=== PATIENT | male | born 1960 | race Caucasian/White ===

== ENCOUNTER 2021-09-01 17:03 | Observation (INO) | payer BC, SELFPAY ==
[2021-09-01] VITALS (13 sets, daily range): BP systolic 115–229; BP diastolic 58–94; PULSE 68–89; RESP 14–18; TEMP 36.4; O2SAT 97–98; BMI 41.4
--- NOTE | 2021-09-01 17:31 | XRR_ITS ---
PROCEDURE INFORMATION: Exam: XR Chest Exam date and time: 09/01/2021 5:37 PM Age: 61 years old Clinical indication: Pain; Angina pectoris; Additional info: Chest pain TECHNIQUE: Imaging protocol: Radiologic exam of the chest. Views: 1 view. COMPARISON: No relevant prior studies available. FINDINGS: Lungs: Lungs are clear. Pleural spaces: There is no pleural effusion or pneumothorax. Heart/Mediastinum: There is mild enlargement of the cardiac silhouette. Bones/joints: Bones are unremarkable. XR/XR chest 1V portable [id number] IMPRESSION: No acute findings.
--- NOTE | 2021-09-01 17:31 | ECG_ITS ---
[facility] Test Date: 2021-09-01 Pat Name: Jules Pardo Department: Room: Gender: Male Dialysis Rn: : 1960 Requested By: Kath Lerner Order Number: [id number] Barros MD: Julia Veliz M.D. Measurements Intervals [place] Rate: 82 P: 61 [place]: 146 QRS: 45 QRSD: 108 T: 94 QT: 377 QTc: 442 Interpretive Statements SINUS RHYTHM WITH SINUS ARRHYTHMIA NONSPECIFIC ST & T-WAVE ABNORMALITY No previous ECG available for comparison Electronically Signed On 09-01-2021 22:13:07 CDT by Julia Veliz M.D. [id number]
--- NOTE | 2021-09-01 17:33 | W.ED.CHESTPA ---
Documented by User: JIM Alonso 09/01/21 22:11 HPI - Chest Pain General: Chief Complaint: Chest Pain Stated Complaint: Possible Heart Attack Time Seen by Provider: 09/01/21 17:33 History of Present Illness: 61-year-old male patient comes in today for complaints of chest discomfort starting under the right breast going to the back and then down his left arm. Patient reports he first had chest discomfort Monday evening and had taken a nitro with some relief of pain. Patient been was seen at the physician's office today with recurrence of chest discomfort. Patient was referred to the emergency room for further evaluation and treatment. Patient was given 1 dose of nitro at the physician's clinic and [place]. Patient takes atorvastatin, lisinopril, clonidine as needed, and furosemide. Patient reports a history of a stress heart attack, about 15 years ago. Patient's had no surgeries. Patient appears in no pain at this time. Patient appears nontoxic. Associated symptoms: Reports nausea; Deny dyspnea, fever(s) or vomiting Review of Systems General: Reports: 10 or more systems reviewed and unremarkable except in HPI and below Const: Denies: fever(s) Card: Reports: chest pain Resp: Denies: dyspnea GI: Reports: nausea; Denies: vomiting or diarrhea : Denies: difficulty urinating Skin/Breast: Denies: rash PFSH ED PFSH: Medical History (Updated 09/04/21 @ 00:00 by ) Brown recluse spider bite Left calf that required intervention Diabetes mellitus, type II History of heart attack Patient describes having a stress heart attack at the age of 31, did not require any intervention Hyperlipidemia Hypertension Sleep apnea Has been on CPAP in the past; does not currently have a functioning CPAP machine Surgical History (Updated 09/02/21 @ 08:31 by Louisa Bishop MD) History of incision and drainage Family History (Updated 09/02/21 @ 08:38 by Louisa Bishop MD) Other CAD (coronary artery disease) Diabetes Social History (Updated 09/02/21 @ 08:33 by Louisa Bishop MD) Smoking and tobacco status: never smoked Alcohol intake: never Physical Exam Const: COMMON NORMALS: alert HENMT: HEAD & SCALP: normal to inspection Neck/C-Spine: COMMON NORMALS: full ROM Chest: COMMONS NORMALS: normal inspection of the chest Resp: COMMON NORMALS: normal respiratory effort and clear to auscultation bilaterally AUSCULTATION: clear to auscultation bilaterally Cardio: COMMON NORMALS: regular rate and regular rhythm RATE: regular rate RHYTHM: regular rhythm GI: COMMON NORMALS: non-tender Extremity: COMMON NORMALS: normal to inspection NARRATIVE EXTREMITY EXAM: no significant edema Neuro: SENSORIUM/ORIENTATION: Yes alert Psych: COMMON NORMALS: mental status grossly normal and cooperative Skin: COMMON NORMALS: no rashes or lesions noted GENERAL SKIN EXAM: no rashes or lesions noted Course ED course: 1829, initial high-sensitivity troponin is 28, heart score is 5. We will await second troponin which is scheduled for 1954. 1929, reviewed patient with Dr. Weldon about patient's increased heart score and is suspicious story. We will await second troponin and then discuss further with patient about admission to hospital for further cardiac evaluation. 2047, Dr. Weldon talked with patient about admission due to increasing numbers on the troponins 2-hour. Patient is resting well at this time and is agreeable to admission. We will talk with Dr. Boo, hospitalist as she is available. Patient will need admission for repeat labs, cardiac monitoring, and isobutylene operator chief evaluation. 2205, reviewed patient with Dr. Bishop who agreed to observation status for patient. Vital Signs: Vital signs: Vital Signs Temperature 98.0 F 09/03/21 07:32 Pulse Rate 64 09/03/21 16:42 Respiratory Rate 17 09/03/21 16:42 Blood Pressure 164/59 09/03/21 16:42 Pulse Oximetry 98 09/03/21 16:42 MDM - Chest Pain Medical Decision Making 61-year-old male patient comes in today for complaints of intermittent chest pain. Patient had an episode of chest pain on Monday in which he took nitro with improvement of his pain. Patient came in today after having chest pain being seen at primary care was given 1 nitro and was referred to the ER for concerns of myocardial infarction. On exam patient is alert and oriented. In moderate pain. Respirations are even lungs were clear to auscultation. Patient's blood pressure was 230 systolic. EKG showed sinus rhythm. Differential diagnosis includes but not limited to malignant hypertension, myocardial infarction, stable angina. Patient was treated with nitroglycerin 1 inch of paste to the chest wall for chest pain, 20 mg of labetalol for his blood pressure, and 324 mg of chewable aspirin for chest pain. Initial troponin was slightly elevated at 28-second troponin showed an increase in his level. We recommended admission to the hospital for further evaluation and monitoring of labs and isobutylene operator chief referral. Lab Data : 09/03/21 04:10 09/03/21 05:30 Radiology Impressions Chest X-Ray 09/01/21 17:31 IMPRESSION: No acute findings. Laboratory Results WBC 8.3 10^3/uL (4.0-10.0) 09/01/21 17:55 RBC 5.68 10^6/uL (4.1-5.3) H 09/01/21 17:55 Hgb 16.2 g/dL (11.7-16.6) 09/01/21 17:55 Hct 46.4 % (42.0-52.0) 09/01/21 17:55 MCV 81.7 fl (80-94) 09/01/21 17:55 MCH 28.5 pg (28.0-34.0) 09/01/21 17:55 MCHC 34.9 g/dL (30.0-36.0) 09/01/21 17:55 RDW 12.0 % (12.1-15.1) L 09/01/21 17:55 Plt Count 301 10^3/cmm (130-400) 09/01/21 17:55 MPV 9.9 fL (7.4-10.4) 09/01/21 17:55 Neut % (Auto) 58.9 % 09/01/21 17:55 Lymph % (Auto) 30.1 % 09/01/21 17:55 [place] % (Auto) 6.6 % 09/01/21 17:55 Eos % (Auto) 3.5 % 09/01/21 17:55 Baso % (Auto) 0.5 % 09/01/21 17:55 Neut # (Auto) 4.88 10^3/uL (1.8-7.7) 09/01/21 17:55 Lymph # (Auto) 2.5 10^3/uL (0.8-4.8) 09/01/21 17:55 [place] # (Auto) 0.6 10^3/uL (0.2-0.9) 09/01/21 17:55 Eos # (Auto) 0.3 10^3/uL (0.0-0.8) 09/01/21 17:55 Baso # (Auto) 0.0 10^3/uL (0.0-0.1) 09/01/21 17:55 Nucleated RBC % (auto) 0 % 09/01/21 17:55 Nucleated RBCs # 0.0 /100WBC 09/01/21 17:55 Sodium 138 mmol/L (136-145) 09/01/21 17:55 Potassium 4.2 mmol/L (3.5-5.1) 09/01/21 17:55 Chloride 102 mmol/L (98-107) 09/01/21 17:55 Carbon Dioxide 23 mmol/L (22-29) 09/01/21 17:55 Anion Gap 17.2 (5-19) 09/01/21 17:55 BUN 23 mg/dL (8-23) 09/01/21 17:55 Creatinine 1.4 mg/dL (0.7-1.2) H 09/01/21 17:55 GFR Calculation 51.5 mL/min (90-130) L 09/01/21 17:55 Glucose 159 mg/dL (65-115) H 09/01/21 17:55 Calculated Osmolality 293 mOsm/kg (285-295) 09/01/21 17:55 Calcium 8.7 mg/dL (8.5-10.5) 09/01/21 17:55 Troponin T Baseline 28 ng/L (0-15) H 09/01/21 17:55 Troponin T 120 Minute 32.51 ng/L (0-15) H 09/01/21 19:50 Delta Troponin T 4.51 ABS# (0-10) 09/01/21 19:50 Discharge Plan Discharge Patient Disposition: Placed in Observation Admit Provider: Louisa Bishop Clinical Impression: Chest pain, Hypertension Discharge Diet: Cardiac Discharge Activity: Resume usual activity Sign Out Sign Out Data: Patient Sign Out occurred on 09/01/21 at 21:44. Patient's care was discussed, and care was transferred from to Óscar Weldon MD. Coding Level of Care Code ED Varnish Supervisor for Chg Fwd Exam Comprehensive Documented by User: Óscar Weldon MD 09/15/21 18:25 HPI - Chest Pain General: Chief Complaint: Chest Pain Stated Complaint: Possible Heart Attack Time Seen by Provider: 09/01/21 17:33 PFSH ED PFSH: Medical History (Updated 09/04/21 @ 00:00 by ) Brown recluse spider bite Left calf that required intervention Diabetes mellitus, type II History of heart attack Patient describes having a stress heart attack at the age of 31, did not require any intervention Hyperlipidemia Hypertension Sleep apnea Has been on CPAP in the past; does not currently have a functioning CPAP machine Surgical History (Updated 09/02/21 @ 08:31 by Louisa Bishop MD) History of incision and drainage Family History (Updated 09/02/21 @ 08:38 by Louisa Bishop MD) Other CAD (coronary artery disease) Diabetes Social History (Updated 09/02/21 @ 08:33 by Louisa Bishop MD) Smoking and tobacco status: never smoked Alcohol intake: never Course Vital Signs: Vital signs: Vital Signs Temperature 98.0 F 09/03/21 07:32 Pulse Rate 64 09/03/21 16:42 Respiratory Rate 17 09/03/21 16:42 Blood Pressure 164/59 09/03/21 16:42 Pulse Oximetry 98 09/03/21 16:42 MDM - Chest Pain Medical Decision Making 61-year-old male patient comes in today for complaints of intermittent chest pain. Patient had an episode of chest pain on Monday in which he took nitro with improvement of his pain. Patient came in today after having chest pain being seen at primary care was given 1 nitro and was referred to the ER for concerns of myocardial infarction. On exam patient is alert and oriented. In moderate pain. Respirations are even lungs were clear to auscultation. Patient's blood pressure was 230 systolic. EKG showed sinus rhythm. Differential diagnosis includes but not limited to malignant hypertension, myocardial infarction, stable angina. Patient was treated with nitroglycerin 1 inch of paste to the chest wall for chest pain, 20 mg of labetalol for his blood pressure, and 324 mg of chewable aspirin for chest pain. Initial troponin was slightly elevated at 28-second troponin showed an increase in his level. We recommended admission to the hospital for further evaluation and monitoring of labs and isobutylene operator chief referral. I discussed this case with JIM Pérez. I personally saw and evaluate the patient. I reviewed documentation, labs, imaging, and EKGs. Patient not low risk by heart score. Óscar Weldon MD Emergency Medicine Lab Data : 09/03/21 04:10 09/03/21 05:30 Radiology Impressions Chest X-Ray 09/01/21 17:31
[2021-09-01] MEDS: nitroglycerin 1 gm/inch oint Pkt 1 INCH TOPICAL ×2 (17:50→23:48)
[2021-09-01] MEDS: aspirin 81 mg Chew Tablet 324 MG PO (17:50)
[2021-09-01 17:59] LABS: Basophils % 0.5 %; Eosinophils # 0.3 10^3/uL (0.0-0.8); Eosinophils % 3.5 %; Hematocrit 46.4 % (42.0-52.0); Hemoglobin 16.2 g/dL (11.7-16.6); Lymphocytes # 2.5 10^3/uL (0.8-4.8); Lymphocytes % 30.1 %; Mean Corpuscular HGB Conc 34.9 g/dL (30.0-36.0); Mean Corpuscular Hemoglobin 28.5 pg (28.0-34.0); Mean Corpuscular Volume 81.7 fl (80-94); Mean Platelet Volume 9.9 fL (7.4-10.4); Monocytes # 0.6 10^3/uL (0.2-0.9); Monocytes % 6.6 %; Neutrophils # 4.88 10^3/uL (1.8-7.7); Neutrophils % 58.9 %; Nucleated Red Blood Cells % 0 %; Platelet Count 301 10^3/cmm (130-400); Red Blood Count 5.68 10^6/uL (4.1-5.3); White Blood Count 8.3 10^3/uL (4.0-10.0)
[2021-09-01 18:17] LABS: Blood Urea Nitrogen 23 mg/dL (8-23); Calcium 8.7 mg/dL (8.5-10.5); Carbon Dioxide 23 mmol/L (22-29); Chloride 102 mmol/L (98-107); Glomerular Filtration Rate 51.5 mL/min (90-130); Glucose 159 mg/dL (65-115); Osmolality Calculated 293 mOsm/kg (285-295); Sodium 138 mmol/L (136-145)
[2021-09-01 18:19] LABS: Troponin(5th) Baseline 28 ng/L (0-15)
[2021-09-01] MEDS: labetalol 5 mg/mL SDV 20mL 20 MG IVP (18:20)
[2021-09-01 18:27] LABS: Anion Gap 17.2 (5-19); Potassium 4.2 mmol/L (3.5-5.1)
--- NOTE | 2021-09-01 19:31 | ECG_ITS ---
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 Measurements Intervals [place] Rate: 89 P: 28 [place]: 176 QRS: 53 QRSD: 117 T: 114 QT: 385 QTc: 470 Interpretive Statements SINUS RHYTHM WITH MARKED SINUS ARRHYTHMIA MODERATE INTRAVENTRICULAR CONDUCTION DELAY [110+ ms QRS DURATION] MODERATE T-WAVE ABNORMALITY, CONSIDER LATERAL ISCHEMIA [-0.1+ mV T-WAVE IN I/aVL/V5/V6] Compared to ECG 09/01/2021 18:02:54 Intraventricular conduction delay now present Possible ischemia now present T-wave abnormality still present Electronically Signed On 09-03-2021 5:52:55 CDT by Tiffany Martinez M.D. [id number]
[2021-09-01 20:20] LABS: Troponin 5 2HR 32.51 ng/L (0-15); Troponin 5 2HR Delta 4.51 ABS# (0-10)
--- NOTE | 2021-09-01 23:10 | PM.HP ---
Providers/Chief Complaint Admitting Physician: Louisa Bishop MD Chief Complaint: Possible Heart Attack History of Present Illness Jules Pardo is a 61 year old male who presented to the emergency room with chief complaint of chest pain. He initially had chest pain on Monday. On that date he woke up not feeling well. Chest pain came on later in the day. It was initially substernal in nature. Associated with shortness of breath, nausea and vomiting. The pain seemed to radiate into his right shoulder and axillary area. He said it felt like I had a balloon under my arm . Later on the pain seemed to also radiate into his left upper extremity. He has different types of pain in different areas with some of it being sharp, primarily on the right side and more of a pressure sensation on the left side. He describes decreased sensation in all of his fingers and toes since Monday. He felt bad enough that he had difficulty walking. He stayed in bed on Monday. Today he saw his primary care provider. In the clinic he was noted to have significant hypertension with systolic pressures in the 200s. This was associated with chest pain so he was sent to the emergency room. On arrival here, blood pressure was 229/94. Chest pain was again located in the substernal area. Nausea and shortness of breath again associated. No radiation of the pain this time. He continues to complain of paresthesias in hands and feet. He was given some Nitropaste with resolution of his chest pain as well as improvement in his blood pressures. Twelve-lead EKG showed sinus rhythm with only nonspecific ST segment changes. No ST elevation. Patient has history of diabetes, hypertension and hyperlipidemia. He says that he had a heart attack at the age of 31 related to stress . He has had stress testing done previously but does not sound like he has had an arteriogram. No history of any stents or other intervention. Last stress test was probably 6 years ago at [place]. Initial troponin was 28. Second troponin was 32. Given risk factors for coronary artery disease combined with presentation, patient is being admitted for further evaluation and treatment. Review of Systems Const: Reports: fatigue and malaise; Denies: fever(s), chills or change in weight Eyes: Denies: change in vision ENMT: Denies: throat pain or nasal congestion Card: Reports: chest pain and dyspnea on exertion; Denies: palpitations, edema, lightheadedness or orthopnea Resp: Reports: dyspnea; Denies: productive cough or non-productive cough GI: Reports: nausea; Denies: abdominal pain, vomiting, diarrhea, constipation or hematochezia : Denies: difficulty urinating Musc: Reports: muscle weakness Skin/Breast: Denies: rash or pruritus Neuro: Reports: numbness in extremities (Fingertips and toe tips), weakness in extremities (General rather than focal) and difficulty walking; Denies: headache(s) Psych: Denies: anxiety or depression Doyle/Lymph: Denies: easy bruising or easy bleeding Medications/Allergies Home Medications Medication Instructions Recorded Confirmed Last Taken Type atorvastatin 10 mg tablet 10 mg PO DAILY 09/01/21 09/01/21 Unknown History clonidine HCl 0.1 mg tablet 0.1 mg PO DAILY PRN 09/01/21 09/01/21 Unknown History furosemide 20 mg tablet 20 mg PO DAILY 09/01/21 09/01/21 Unknown History lisinopril 20 mg tablet 10 mg PO DAILY 09/01/21 09/01/21 Unknown History insulin NPH isoph U-100 human 100 30 unit SUBCUT BID 09/02/21 09/02/21 09/01/21 History unit/mL subcutaneous suspension (Novolin N NPH U-100 Insulin isophane) insulin regular human 100 unit/mL See Rx Instructions .ROUTE .COMPLEX 09/02/21 09/02/21 Unknown History injection solution (Novolin R Regular U-100 Insulin) Allergies Allergy/AdvReac Type Severity Reaction Status Date / Time No Known Allergies Allergy Verified 09/02/21 08:27 PFSH Acute PFSH: Medical History (Updated 09/02/21 @ 09:03 by Louisa Bishop MD) Brown recluse spider bite Left calf that required intervention Diabetes mellitus, type II History of heart attack Patient describes having a stress heart attack at the age of 31, did not require any intervention Hyperlipidemia Hypertension Sleep apnea Has been on CPAP in the past; does not currently have a functioning CPAP machine Surgical History (Updated 09/02/21 @ 08:31 by Louisa Bishop MD) History of incision and drainage Family History (Updated 09/02/21 @ 08:38 by Louisa Bishop MD) Other CAD (coronary artery disease) Diabetes Social History (Updated 09/02/21 @ 08:33 by Louisa Bishop MD) Smoking and tobacco status: never smoked Alcohol intake: never Substance/Drug Use: never Vitals/I&O/Wt Last Vital Signs Temp 97.6 F 09/01/21 17:08 Pulse 71 09/01/21 22:40 Resp 16 09/01/21 22:40 BP 139/84 09/01/21 22:40 Pulse Ox 97 09/01/21 22:40 Weight last 48 hrs Weight 116.573 kg Physical Exam Narrative: Constitutional: Awake and alert HEENT: Normocephalic, atraumatic, pupils are reactive, conjunctive is slightly injected, nasopharynx is clear, oropharynx with moist mucous membranes Neck: Large but supple Respiratory: Clear to auscultation bilaterally, no rales rhonchi or wheezes Cardiovascular: Regular rate and rhythm, no murmurs gallops or rubs, no JVD Abdomen: Soft, obese, nontender, positive bowel sounds Extremities: Trace edema bilaterally, left calf with some nodularity in the region of the hyperpigmented area which she states corresponds to where he previously had a brown recluse bite with large wound Skin: Hyperpigmented areas both calves left more prominent than right with some stasis changes appreciated anteriorly Neuro: Speech clear, face symmetric, handgrip equal, decreased sensation to light touch at all digits distally, not in a dermatomal pattern Psych: Normal affect Data : 09/01/21 17:55 09/02/21 05:42 Other Labs: Radiology Impressions Chest X-Ray 09/01/21 17:31 IMPRESSION: No acute findings. Laboratory Results WBC 8.3 10^3/uL (4.0-10.0) 09/01/21 17:55 RBC 5.68 10^6/uL (4.1-5.3) H 09/01/21 17:55 Hgb 16.2 g/dL (11.7-16.6) 09/01/21 17:55 Hct 46.4 % (42.0-52.0) 09/01/21 17:55 MCV 81.7 fl (80-94) 09/01/21 17:55 MCH 28.5 pg (28.0-34.0) 09/01/21 17:55 MCHC 34.9 g/dL (30.0-36.0) 09/01/21 17:55 RDW 12.0 % (12.1-15.1) L 09/01/21 17:55 Plt Count 301 10^3/cmm (130-400) 09/01/21 17:55 MPV 9.9 fL (7.4-10.4) 09/01/21 17:55 Neut % (Auto) 58.9 % 09/01/21 17:55 Lymph % (Auto) 30.1 % 09/01/21 17:55 [place] % (Auto) 6.6 % 09/01/21 17:55 Eos % (Auto) 3.5 % 09/01/21 17:55 Baso % (Auto) 0.5 % 09/01/21 17:55 Neut # (Auto) 4.88 10^3/uL (1.8-7.7) 09/01/21 17:55 Lymph # (Auto) 2.5 10^3/uL (0.8-4.8) 09/01/21 17:55 [place] # (Auto) 0.6 10^3/uL (0.2-0.9) 09/01/21 17:55 Eos # (Auto) 0.3 10^3/uL (0.0-0.8) 09/01/21 17:55 Baso # (Auto) 0.0 10^3/uL (0.0-0.1) 09/01/21 17:55 Nucleated RBC % (auto) 0 % 09/01/21 17:55 Nucleated RBCs # 0.0 /100WBC 09/01/21 17:55 Sodium 138 mmol/L (136-145) 09/01/21 17:55 Potassium 4.2 mmol/L (3.5-5.1) 09/01/21 17:55 Chloride 102 mmol/L (98-107) 09/01/21 17:55 Carbon Dioxide 23 mmol/L (22-29) 09/01/21 17:55 Anion Gap 17.2 (5-19) 09/01/21 17:55 BUN 23 mg/dL (8-23) 09/01/21 17:55 Creatinine 1.4 mg/dL (0.7-1.2) H 09/01/21 17:55 GFR Calculation 51.5 mL/min (90-130) L 09/01/21 17:55 Glucose 159 mg/dL (65-115) H 09/01/21 17:55 Calculated Osmolality 293 mOsm/kg (285-295) 09/01/21 17:55 Calcium 8.7 mg/dL (8.5-10.5) 09/01/21 17:55 Troponin T Baseline 28 ng/L (0-15) H 09/01/21 17:55 Troponin T 120 Minute 32.51 ng/L (0-15) H 09/01/21 19:50 Delta Troponin T 4.51 ABS# (0-10) 09/01/21 19:50 A&P Assessment and plan (1) Chest pain: With typical and atypical features for angina. Hypertension, untreated sleep apnea, GI or musculoskeletal source of symptoms are also consideration. Improved with nitroglycerin. Status: Acute Qualifiers: Chest pain type: precordial pain Qualified Code(s): R07.2 - Precordial pain (2) Hypertensive urgency: Present on admission. Patient describes another event not too long ago that was similar during which he was prescribed clonidine to utilize as needed. Improved with Nitropaste. Chronically on Lasix and lisinopril. Status: Acute (3) Elevated serum creatinine: Suspect patient has chronic kidney disease stage IIIa but no prior laboratory studies for comparison. He does have chronic furosemide and lisinopril on his medication list also. Status: Acute (4) Diabetes mellitus, type II: On Novolin N and R Status: Chronic Qualifiers: Chronic kidney disease stage: stage 3 (moderate) Chronic kidney disease stage 3 subtype: stage 3a (GFR 45-59) Diabetes mellitus complication detail: with chronic kidney disease Diabetes mellitus complication status: with kidney complications Diabetes mellitus buttermaker continuous churn insulin use: with long-term use Qualified Code(s): E11.22 - Type 2 diabetes mellitus with diabetic chronic kidney disease; N18.31 - Chronic kidney disease, stage 3a; Z79.4 - assisted (current) use of insulin (5) Hyperlipidemia: Chronically on statin Status: Chronic (6) Sleep apnea: Not currently on CPAP treatment due to nonfunctioning machine Status: Chronic Qualifiers: Sleep apnea type: obstructive Qualified Code(s): G47.33 - Obstructive sleep apnea (adult) (pediatric) (7) Body mass index (BMI) of 40.1 to 44.9 in adult: Status: Chronic Plan Observation admission Continue serial cardiac enzymes Continue Nitropaste presently Add aspirin therapy Echocardiogram As long as cardiac enzymes do not show significant delta we will plan for stress testing tomorrow Continue home statin Presently holding Lasix and lisinopril Recheck renal function in the morning Check hemoglobin A1c and lipid panel NPH 30 units twice a day with meals and sliding scale lispro Monitor for need to reinitiate CPAP Supportive care otherwise Anticipate discharge home with outpatient follow-up, though will ultimately depend on clinical course Current plans discussed with patient and he was given an opportunity to ask questions Full code Attestations Medical Necessity Statement*: Anticipated stay less than two midnights presently in a patient with risk factors for coronary artery disease presenting with chest pain and hypertensive urgency. He has elevated troponin without significant delta at 2 hours. Both chest pain and high blood pressure have improved with nitroglycerin. Plans are as noted above. Coding Level of Care Code Acute Vocational Instructor for Fariha Black Diagnoses Chest pain R07.2 Chest pain type: precordial pain Hypertensive urgency I16.0 Body mass index (BMI) of 40.1 to 44.9 in adult Z68.41 Diabetes mellitus, type II E11.22; N18.31; Z79.4 Chronic kidney disease stage: stage 3 (moderate) Chronic kidney disease stage 3 subtype: stage 3a (GFR 45-59) Diabetes mellitus complication detail: with chronic kidney disease Diabetes mellitus complication status: with kidney complications Diabetes mellitus long-term insulin use: with buttermaker continuous churn use Hyperlipidemia E78.5 Elevated serum creatinine R79.89 Sleep apnea G47.33 Sleep apnea type: obstructive
--- NOTE | 2021-09-01 23:31 | ECG_ITS ---
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 Measurements Intervals [place] Rate: 65 P: 44 [place]: 163 QRS: 55 QRSD: 113 T: 99 QT: 412 QTc: 429 Interpretive Statements SINUS RHYTHM WITH MARKED SINUS ARRHYTHMIA MODERATE INTRAVENTRICULAR CONDUCTION DELAY [110+ ms QRS DURATION] MODERATE T-WAVE ABNORMALITY, CONSIDER LATERAL ISCHEMIA [-0.1+ mV T-WAVE IN I/aVL/V5/V6] Compared to ECG 09/01/2021 23:08:27 No significant changes Electronically Signed On 09-03-2021 5:58:10 CDT by Tiffany Martinez M.D. [id number]
[2021-09-01 23:48] LABS: Glucose Point of Care 144 mg/dL (70-110)
[2021-09-01] MEDS: enoxaparin 40 mg/0.4 mL Syringe SUBCUT (23:48)
[2021-09-01] MEDS: sodium chlor 0.9% + KCl 20 mEq 20 MEQ/1,000 ML BAG 50 MEQ IV (23:49)
[2021-09-02] VITALS (10 sets, daily range): BP systolic 142–197; BP diastolic 66–95; PULSE 59–86; RESP 17–18; TEMP 36.6–37.2; O2SAT 96–97
--- NOTE | 2021-09-02 01:16 | USCV_ITS ---
Jules Pardo Age: 61 Gender: M : 1960 Exam Date: 09/02/2021 01:31 Ordering Phys: Louisa Bishop MD Technologist: JAKE Exam Location: [facility] [place] Indication: Chest Pain / Hypertension / Positive Troponin BP: 135 / 77 HR: 66 Rhythm: Sinus Technical Quality: Adequate MEASUREMENTS (Male / Female) Normal Values 2D ECHO LV Diastolic Diameter PLAX 3.0 cm 4.2 - 5.9 / 3.9 - 5.3 cm LV Systolic Diameter PLAX 2.1 cm IVS Diastolic Thickness 2.5 cm 0.6 - 1.0 / 0.6 - 0.9 cm IVS Systolic Thickness 2.1 cm LVPW Diastolic Thickness 2.6 cm 0.6 - 1.0 / 0.6 - 0.9 cm LVPW Systolic Thickness 2.8 cm LVOT Diameter 2.4 cm LV Ejection Fraction 2D Teich 66.1 % LV Ejection Fraction MOD 2C 70.0 % LV Ejection Fraction 2C AL 72.9 % LA Diameter 3.2 cm LA Width 3.4 cm LA Height 5.1 cm RA Width 3.9 cm RA Height 3.9 cm Aorta at Sinotubular Diameter 2.4 cm M-MODE Aortic Annulus Diameter 2.5 cm LA Ao Ratio MM 1.4 MV E Point Septal Separation 0.8 cm DOPPLER AV Peak Velocity 197.7 cm/s LVOT Peak Velocity 98.0 cm/s AV Area Cont Eq vti 2.8 cm squared AV Area Cont Eq pk 2.2 cm squared MV Peak Velocity 101.0 cm/s MV Area PHT 3.2 cm squared Mitral E to A Ratio 0.8 MV E' Velocity 80.0 cm/s Mitral E to LV E' Septal Ratio 18.1 TR Peak Velocity 135.5 cm/s TR Peak Gradient 7.3 mmHg TR Mean Velocity 92.8 cm/s TR Mean Gradient 4.0 mmHg TR Velocity Time Integral 25.2 cm Right Atrial Pressure 10.0 mmHg Pulmonary Artery Systolic Pressu 17.3 mmHg PV Peak Velocity 97.0 cm/s RV Acceleration Time 0.1 s RV Ejection Time 0.3 s RV AcT/ET 0.5 FINDINGS Left Ventricle Normal left ventricular size. LV systolic function is normal with EF of 60-65%. No regional wall motion abnormalities. Grade 1 diastolic dysfunction Right Ventricle The right ventricle is normal in size and function. Right Atrium The right atrium is normal in size. Left Atrium The left atrium is normal in size. Mitral Valve Moderate mitral annular calcification without significant stenosis or prolapse. There is no mitral regurgitation. Aortic Valve Aortic valve is thickened. No significant stenosis. There is no aortic regurgitation. Tricuspid Valve Not well visualized. Trace tricuspid regurgitation. Insufficient TR jet to calculate RVSP Pulmonic Valve Not visualized Pericardium Normal pericardium without effusion. Aorta Normal ascending aorta dimension. IVC CONCLUSIONS Technically limited quality echocardiogram because of poor ultrasonic windows. LV systolic function is normal with EF of 60 to 65%. Grade 1 diastolic dysfunction. Moderate mitral annular calcification is seen. Aortic valve is thickened. Trace tricuspid regurgitation. No comparison studies are available. Billy Chen MD (Electronically Signed) Final Date: 03 September 2021 07:33 S
--- NOTE | 2021-09-02 01:17 | ECG_ITS ---
[facility] Test Date: 2021-09-02 Pat Name: Jules Pardo Department: Room: 278 Gender: Male Him Specialists: : 1960 Requested By: Louisa Bishop Order Number: [id number] Barros MD: Billy Chen M.D. Interpretive Statements NAME OF STUDY: LEXISCAN SESTAMIBI STRESS TEST INDICATION: [Chest Pain, ] Procedure: At the baseline, the blood pressure was 173/102mmHg with a heart rate of 76 bpm. The electrocardiogram showed normal sinus rhythm, normal axis with normal ST and T's. The Lexiscan was infused over a period of 20 seconds. A total of 0.4 mg of Lexiscan was infused. The stress phase was continued for a total of 5 minutes. Heart rate was at the end of stress phase was 81 bpm and a blood pressure of 192/87 mmHg. The EKG at the peak infusion revealed normal sinus rhythm with no significant ST-T wave changes. Sestamibi was injected 20 seconds after the Lexiscan infusion. Blood pressure at the end of recovery phase was 181/92 mmHg with a heart rate of 83 bpm. Conclusion: 1. Normal EKG response to Lexiscan infusion 2. No Lexiscan induced chest pain or cardiac arrhythmia. 3. Normal blood pressure and heart rate response. 4. Sestamibi/sestamibi perfusion scan pending; see separate report. Electronically Signed On 09-07-2021 14:29:15 CDT by Billy Chen M.D. [id number]
--- NOTE | 2021-09-02 01:18 | NMCV_ITS ---
NM hakeem perf SPECT r/s* [id number] Jules Pardo Age: 61 Gender: M : 1960 Exam Date: 09/02/2021 07:00 Ordering Phys: Louisa Bishop MD Technologist: ROB Grace Exam Location: [facility] Indications: Chest pain STRESS TEST Please see separate stress test report in [facility] for full findings IMAGE PROTOCOL Rest/Stress 1 Lexiscan Day Radiopharmaceutical Dose (mCi) Administration Site Administered by Rest: Tc-99m 10.9 IV ROB Grace Sestamibi Stress:Tc-99m 33.0 IV ROB Grace Sestamibi Rest: 02-Sep-2021 60 Discovery 630 Stress: 02-Sep-2021 45 Discovery 630 0.4mg Lexiscan. Images obtained in supine and prone position. SPECT RESULTS Technical Quality: Good Raw Data Analysis: Normal Image Corrections: No attenuation or motion correction applied Summed Stress Score: 2 Summed Rest Score: 4 Summed Difference Score: 0 PERFUSION FINDINGS There is a small in size, fixed perfusion defect in the inferolateral wall. 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 FUNCTIONAL RESULTS (calculated via Gated SPECT) Stress Image LV EF (%): 71 Stress EDV (mL):101 TID: 0.87 Stress ESV (mL):29 FUNCTIONAL FINDINGS: There is normal left ventricular systolic function. IMPRESSIONS 1. Abnormal myocardial perfusion imaging with small sized, prior infarct seen in the left circumflex artery territory. 2. LV systolic function is normal Billy Chen MD (Electronically Signed) Final Date: 02 September 2021 09:02 S
[2021-09-02] MEDS: nitroglycerin 1 gm/inch oint Pkt 1 INCH TOPICAL (05:17)
[2021-09-02 06:13] LABS: Anion Gap 13.6 (5-19); Blood Urea Nitrogen 23 mg/dL (8-23); Calcium 7.9 mg/dL (8.5-10.5); Carbon Dioxide 24 mmol/L (22-29); Chloride 102 mmol/L (98-107); Cholesterol 172 mg/dL (0-200); Glomerular Filtration Rate 51.5 mL/min (90-130); Glucose 332 mg/dL (65-115); HDL Cholesterol 43 mg/dL (60-100); LDL Cholesterol Calculated 91 mg/dL (50-129); LDL HDL Ratio 2.12 RATIO (0.00-3.22); Osmolality Calculated 297 mOsm/kg (285-295); Potassium 4.6 mmol/L (3.5-5.1); Sodium 135 mmol/L (136-145); Triglycerides 192 mg/dL (0-150)
[2021-09-02 06:15] LABS: Estmated Average Glucose 232; Hemoglobin A1C 9.7 % (4.0-6.0)
[2021-09-02 06:26] LABS: Partial Thromboplastin Time 33.2 SECONDS (23.9-36.7)
[2021-09-02] MEDS: regadenoson 0.4 Mg/5 ml Syringe IVP (07:36)
[2021-09-02 08:28] LABS: Glucose Point of Care 384 mg/dL (70-110)
[2021-09-02] MEDS: insulin lispro 100 unit/1 mL SUBCUT ×4 (09:16→21:02)
[2021-09-02] MEDS: acetaminophen 325 mg Tablet 650 MG PO (09:17)
[2021-09-02] MEDS: metoprolol tartrate 25 mg Tablet PO ×2 (09:18→21:03)
[2021-09-02] MEDS: aspirin 325 mg EC Tablet PO (09:18)
--- NOTE | 2021-09-02 10:04 | PC.CHAP ---
Pastoral Care Encounter/Spiritual Assessment Type of Contact [] Declined stroboscope operator visit [] Patient/Family/Request visit [] Outpatient visit [] Follow-up visit [] Physician referral [] Code/Alert [x] Routine visit [] Staff referral [] Actively dying [] Patient sleeping [] Family support [] [] Out of room [] Palliative care [] [x] Receiving care in room [] Pre-surgical visit [] Trauma [x] Long length of stay [] ICU visit [] Other: Relational/Emotional Strength [x] Patient feels connected with others/family/visitors/staff [] Distress [] Loneliness/isolation [] Abandonment Spirituality of Patient [x] Person of Carolin [] Attends Religion of their [place] [x] Believes in Prayer [] Reads Bible or Taoist materials [] There are Spiritual issues to be addressed Scrap Piler Interventions [x] Prayer [x] Active listening [x] Non-anxious presence [x] Spiritual/emotional support [] Crisis/trauma care [x] Spiritual counseling [] Bereavement support [] Provided bereavement packet [] Provided Bible/devotional materials [] Provided toy/stuffed animal, coloring book to patient or family member [] Provided Communion [] Anointing/[place] [] Salvation [x] Completed spiritual assessment [] Other: Impact on Illness or Injury [] Angry [] Fearful [x] Anxious [] Often cries [] Exhaustion [x] Unable to work [] Unable to attend adventism [] Unable to walk/stand [] Unable to read [] Unable to drive [] Unable to eat/drink [] Unable to sleep [] Unable to be with family [] Patient intubated [] Other: Summary dealing with his heart checking and some changes in meds haa high blood persuer and other health problems has a good attitude and is going home at some point Time spent with patient 10 mins
[2021-09-02] MEDS: insulin nph human 100 units/1 mL 15 UNIT SUBCUT (10:14)
[2021-09-02 12:17] LABS: Glucose Point of Care 325 mg/dL (70-110)
[2021-09-02] MEDS: lisinopril 10 mg Tablet PO (14:07)
--- NOTE | 2021-09-02 15:53 | P.PN_ITS ---
Subjective Subjective: Patient was seen this morning, he continues to have some anterior chest discomfort, he is also worried about his elevated blood pressure Vitals/I&O/Wt Last Vital Signs Temp 98.0 F 09/02/21 15:52 Pulse 65 09/02/21 15:52 Resp 18 09/02/21 15:52 BP 197/86 09/02/21 15:52 Pulse Ox 97 09/02/21 15:52 09/02/21 09/02/21 09/02/21 06:59 14:59 22:59 Intake Total 0 / 0 1028.333 / 1028.333 Balance 0 / 0 1028.333 / 1028.333 Weight last 48 hrs Weight 116.573 kg Physical Exam Const: COMMON NORMALS: no acute distress and patient oriented x3 Resp: COMMON NORMALS: normal respiratory effort, No retractions, No use of accessory muscles and clear to auscultation bilaterally AUSCULTATION: clear to auscultation bilaterally Cardio: COMMON NORMALS: regular rate, regular rhythm, S1 normal heart sound present and S2 normal heart sound present RATE: regular rate RHYTHM: regular rhythm HEART SOUNDS: S1 normal heart sound present and S2 normal heart sound present GI: COMMON NORMALS: Normal to inspection, nondistended, normoactive bowel sounds present, Soft to palpation, non-tender and No hepatosplenomegaly present PALPATION: Yes Soft to palpation and Yes No hepatosplenomegaly present Extremity: COMMON NORMALS: no pedal edema Neuro: COMMON NORMALS: patient oriented x3 Psych: COMMON NORMALS: mental status grossly normal Data : 09/01/21 17:55 09/02/21 05:42 A&P Assessment and plan (1) Chest pain: With typical and atypical features for angina. Hypertension, untreated sleep apnea, GI or musculoskeletal source of symptoms are also consideration. Improved with nitroglycerin. Status: Acute Qualifiers: Chest pain type: precordial pain Qualified Code(s): R07.2 - Precordial pain (2) Hypertensive urgency: Present on admission. Patient describes another event not too long ago that was similar during which he was prescribed clonidine to utilize as needed. Improved with Nitropaste. Chronically on Lasix and lisinopril. Status: Acute (3) Elevated serum creatinine: Suspect patient has chronic kidney disease stage IIIa but no prior laboratory studies for comparison. He does have chronic furosemide and lisinopril on his medication list also. Status: Acute (4) Diabetes mellitus, type II: On Novolin N and R Status: Chronic Qualifiers: Diabetes mellitus assisted insulin use: with assisted use Diabetes mellitus complication status: with kidney complications Diabetes mellitus complication detail: with chronic kidney disease Chronic kidney disease stage: stage 3 (moderate) Chronic kidney disease stage 3 subtype: stage 3a (GFR 45-59) Qualified Code(s): E11.22 - Type 2 diabetes mellitus with diabetic chronic kidney disease; N18.31 - Chronic kidney disease, stage 3a; Z79.4 - long term acute care registered nurse (current) use of insulin (5) Hyperlipidemia: Chronically on statin Status: Chronic (6) Sleep apnea: Not currently on CPAP treatment due to nonfunctioning machine Status: Chronic Qualifiers: Sleep apnea type: obstructive Qualified Code(s): G47.33 - Obstructive sleep apnea (adult) (pediatric) (7) Body mass index (BMI) of 40.1 to 44.9 in adult: Status: Chronic Plan Follow cardiac stress test results, cardiac echo Monitor for chest pain Continue Nitropaste presently Add aspirin therapy Continue home statin Metoprolol 5 twice daily, lisinopril 10 daily, add Aldactone Recheck renal function in the morning NPH 30 units twice a day with meals and sliding scale lispro Monitor for need to reinitiate CPAP Supportive care otherwise Anticipate discharge home with outpatient follow-up, though will ultimately depend on clinical course Current plans discussed with patient and he was given an opportunity to ask questions Full code Attestations Medical Necessity Statement*: Patient requires hospitalization for chest pain Coding Level of Care Code Acute Chin Strap Maker for [facility] Diagnoses Chest pain R07.2 Chest pain type: precordial pain Hypertensive urgency I16.0 Elevated serum creatinine R79.89 Diabetes mellitus, type II E11.22; N18.31; Z79.4 Diabetes mellitus assisted insulin use: with long term acute care registered nurse use Diabetes mellitus complication status: with kidney complications Diabetes mellitus complication detail: with chronic kidney disease Chronic kidney disease stage: stage 3 (moderate) Chronic kidney disease stage 3 subtype: stage 3a (GFR 45-59) Hyperlipidemia E78.5 Sleep apnea G47.33 Sleep apnea type: obstructive Body mass index (BMI) of 40.1 to 44.9 in adult Z68.41
--- NOTE | 2021-09-02 16:33 | PM.CONSULT ---
Providers/Reason For Consult Consulting Physician/Specialty*: Billy Chen MD/ Cardiology Reason for Consult*: Chest pain Requesting Physician: Dr Castillo Attending Physician: Farshad Castillo MD History of Present Illness History of Present Illness Jules Pardo is a 61 year old male with past medical history of hypertension has presented with chest pain symptoms. Patient has been having a substernal chest discomfort. Also is associated with nausea and vomiting. However his blood pressure was found to be over 220 mmHg systolic. Now blood pressure has improved. Echocardiogram shows normal LV systolic function. Stress test shows a small sized prior infarct in left circumflex artery territory. Patient's creatinine is elevated and he has CKD stage III. Troponin did not trend up significantly. Review of Systems Const: Reports: fatigue and malaise; Denies: fever(s), chills or change in weight Eyes: Denies: change in vision ENMT: Denies: throat pain or nasal congestion Card: Reports: chest pain and dyspnea on exertion; Denies: palpitations, edema, lightheadedness or orthopnea Resp: Reports: dyspnea; Denies: productive cough or non-productive cough GI: Reports: nausea; Denies: abdominal pain, vomiting, diarrhea, constipation or hematochezia : Denies: difficulty urinating Musc: Reports: muscle weakness Skin/Breast: Denies: rash or pruritus Neuro: Reports: numbness in extremities (Fingertips and toe tips), weakness in extremities (General rather than focal) and difficulty walking; Denies: headache(s) Psych: Denies: anxiety or depression Doyle/Lymph: Denies: easy bruising or easy bleeding Medications/Allergies Home Medications Medication Instructions Recorded Confirmed Last Taken Type atorvastatin 10 mg tablet 10 mg PO DAILY 09/01/21 09/01/21 Unknown History furosemide 20 mg tablet 20 mg PO DAILY 09/01/21 09/01/21 Unknown History insulin NPH isoph U-100 human 100 30 unit SUBCUT BID 09/02/21 09/02/21 09/01/21 History unit/mL subcutaneous suspension (Novolin N NPH U-100 Insulin isophane) insulin regular human 100 unit/mL See Rx Instructions .ROUTE .COMPLEX 09/02/21 09/02/21 Unknown History injection solution (Novolin R Regular U-100 Insulin) amlodipine 10 mg tablet 10 mg PO DAILY 30 Days #30 tab 09/03/21 Unknown Rx aspirin 81 mg capsule 81 mg PO DAILY 30 Days #30 cap 09/03/21 Unknown Rx clonidine HCl 0.1 mg tablet 0.1 mg PO DAILY PRN 30 Days #30 tab 09/03/21 09/01/21 Unknown Rx lisinopril 20 mg tablet 20 mg PO BID 30 Days #60 tab 09/03/21 Unknown Rx metoprolol tartrate 25 mg tablet 25 mg PO BID@0900,2100 30 Days #60 09/03/21 Unknown Rx tab nitroglycerin 0.4 mg sublingual 0.4 mg SUBLINGUAL Q5M PRN 30 Days 09/03/21 Unknown Rx tablet #30 tab spironolactone 25 mg tablet 25 mg PO DAILY 30 Days #30 tab 09/03/21 Unknown Rx Allergies Allergy/AdvReac Type Severity Reaction Status Date / Time No Known Allergies Allergy Verified 09/02/21 08:27 Current Medications Generic Name Dose Route Start Last Admin Trade Name Freq PRN Reason Stop Dose Admin Acetaminophen 650 mg 09/01/21 23:13 09/02/21 09:17 Acetaminophen 325 Mg Tablet PO 650 mg Q6H PRN Administration Mild/Mod Pain Or Temp >/= 101 Aspirin 325 mg 09/02/21 09:00 09/02/21 09:18 Aspirin 325 Mg Ec Tablet PO 325 mg DAILY DANNY Administration Enoxaparin Sodium 40 mg 09/01/21 23:15 09/01/21 23:48 Enoxaparin 40 Mg/0.4 Ml Syringe SUBCUT 40 mg Q24H DANNY Administration Insulin Human Lispro 0 unit 09/02/21 08:00 09/02/21 13:19 Insulin Lispro 100 Unit/1 Ml SUBCUT 12 unit TIDWM DANNY Administration Protocol Insulin Human NPH 15 unit 09/02/21 09:00 09/02/21 10:14 Insulin Nph Human 100 Units/1 Ml SUBCUT 15 unit BIDAC DANNY Administration Lisinopril 10 mg 09/02/21 13:25 09/02/21 14:07 Lisinopril 10 Mg Tablet PO 10 mg BID DANNY Administration Metoprolol Tartrate 25 mg 09/02/21 09:00 09/02/21 09:18 Metoprolol Tartrate 25 Mg Tablet PO 25 mg BID@0900,2100 DANNY Administration PFSH Acute PFSH: Medical History Brown recluse spider bite Left calf that required intervention Diabetes mellitus, type II History of heart attack Patient describes having a stress heart attack at the age of 31, did not require any intervention Hyperlipidemia Hypertension Sleep apnea Has been on CPAP in the past; does not currently have a functioning CPAP machine Surgical History History of incision and drainage Family History Other CAD (coronary artery disease) Diabetes Social History Smoking and tobacco status: never smoked Alcohol intake: never Vitals/I&O/Wt Last Vital Signs Temp 98.0 F 09/02/21 15:52 Pulse 65 09/02/21 15:52 Resp 18 09/02/21 15:52 BP 197/86 09/02/21 15:52 Pulse Ox 97 09/02/21 15:52 09/02/21 09/02/21 09/02/21 06:59 14:59 22:59 Intake Total 0 / 0 1028.333 / 1028.333 Balance 0 / 0 1028.333 / 1028.333 Weight last 48 hrs Weight 257 lb Physical Exam Narrative: GENERAL: Patient is alert, awake and oriented x3. [] NECK: No jugular vein distension. [] HEENT: No cyanosis. No icterus. No pallor. [] HEART: Regular S1 and S2. No murmur, rub or gallop. [] LUNGS: Clear to auscultate bilaterally. [] ABDOMEN: Soft, nontender and nondistended. Positive bowel sounds. No guarding, rebound or tenderness. [] CENTRAL NERVOUS SYSTEM: Grossly nonfocal. [] EXTREMITIES: Lower extremities with 1+ edema bilaterally. Pulses palpable in the lower extremities, both dorsalis pedis and posterior tibial. [] Data : 09/03/21 04:10 09/03/21 05:30 A&P Assessment and plan (1) Hyperlipidemia: Status: Chronic (2) Diabetes mellitus, type II: Status: Chronic Qualifiers: Diabetes mellitus intermediate insulin use: with local intermodal truck driver use Diabetes mellitus complication status: with kidney complications Diabetes mellitus complication detail: with chronic kidney disease Chronic kidney disease stage: stage 3 (moderate) Chronic kidney disease stage 3 subtype: stage 3a (GFR 45-59) Qualified Code(s): E11.22 - Type 2 diabetes mellitus with diabetic chronic kidney disease; N18.31 - Chronic kidney disease, stage 3a; Z79.4 - salvage determiner (current) use of insulin (3) Chest pain: Status: Acute Plan Patient has presented with chest pain symptoms however troponins have not trended up significantly, echo does not show LV dysfunction and stress test showed small sized prior infarct with no significant ischemia. At this time we will medically manage him. I had a detailed discussion with him regarding coronary angiogram versus medical management and he has decided to proceed with medical management. Aggressive blood pressure control. Continue aspirin. Thank you for involving us with care of this patient. We will continue to follow. Please call with questions Consult Attestations Medical Necessity Statement: Care expected to cross 2 midnights. Coding Level of Care Code Acute Field Operations Coordinator for [facility] Diagnoses Hyperlipidemia E78.5 Diabetes mellitus, type II E11.22; N18.31; Z79.4 Diabetes mellitus intermediate insulin use: with intermediate use Diabetes mellitus complication status: with kidney complications Diabetes mellitus complication detail: with chronic kidney disease Chronic kidney disease stage: stage 3 (moderate) Chronic kidney disease stage 3 subtype: stage 3a (GFR 45-59) Chest pain R07.9
[2021-09-02 16:55] LABS: Glucose Point of Care 420 mg/dL (70-110)
[2021-09-02] MEDS: lisinopril 20 mg Tablet PO (17:38)
[2021-09-02] MEDS: spironolactone 25 mg Tablet PO (17:38)
[2021-09-02 20:49] LABS: Glucose Point of Care 338 mg/dL (70-110)
[2021-09-02] MEDS: atorvastatin 40 mg Tablet 10 MG PO (21:03)
[2021-09-02] MEDS: insulin nph human 100 units/1 mL 30 UNIT SUBCUT (21:05)
[2021-09-02] MEDS: enoxaparin 40 mg/0.4 mL Syringe SUBCUT (22:13)
[2021-09-03] VITALS (9 sets, daily range): BP systolic 145–197; BP diastolic 59–89; PULSE 57–68; RESP 17–19; TEMP 36.7–37; O2SAT 96–98
[2021-09-03 04:31] LABS: Basophils % 0.5 %; Eosinophils # 0.3 10^3/uL (0.0-0.8); Eosinophils % 3.5 %; Hematocrit 44.9 % (42.0-52.0); Hemoglobin 15.9 g/dL (11.7-16.6); Lymphocytes # 2.7 10^3/uL (0.8-4.8); Lymphocytes % 35.5 %; Mean Corpuscular HGB Conc 35.4 g/dL (30.0-36.0); Mean Corpuscular Hemoglobin 28.4 pg (28.0-34.0); Mean Corpuscular Volume 80.3 fl (80-94); Mean Platelet Volume 11.1 fL (7.4-10.4); Monocytes # 0.5 10^3/uL (0.2-0.9); Neutrophils # 4.18 10^3/uL (1.8-7.7); Neutrophils % 54.2 %; Nucleated Red Blood Cells % 0 %; Platelet Count 226 10^3/cmm (130-400); Red Blood Count 5.59 10^6/uL (4.1-5.3); Red Cell Distribution Width 11.9 % (12.1-15.1); White Blood Count 7.7 10^3/uL (4.0-10.0)
[2021-09-03 05:59] LABS: Alanine Aminotransferase 19 U/L (0-41); Albumin Level 3.3 g/dL (3.5-5.2); Alkaline Phosphatase 81 IU/L (40-130); Anion Gap 15.1 (5-19); Aspartate Amino Transferase 17 U/L (0-40); Blood Urea Nitrogen 21 mg/dL (8-23); Calcium 8.4 mg/dL (8.5-10.5); Carbon Dioxide 24 mmol/L (22-29); Chloride 103 mmol/L (98-107); Globulin 3.1 g/dL (1.3-4.6); Glomerular Filtration Rate 68.1 mL/min (90-130); Glucose 121 mg/dL (65-115); Osmolality Calculated 290 mOsm/kg (285-295); Phosphorus 3.7 mg/dL (2.5-4.5); Potassium 4.1 mmol/L (3.5-5.1); Sodium 138 mmol/L (136-145); Total Bilirubin 0.4 mg/dL (0.15-1.2); Total Protein 6.4 g/dL (6.6-8.7)
[2021-09-03 06:14] LABS: Glucose Point of Care 140 mg/dL (70-110)
--- NOTE | 2021-09-03 08:57 | P.PN_ITS ---
Subjective Subjective: Patient is doing well. Denies any more chest pain symptoms. Vitals/I&O/Wt Last Vital Signs Temp 98.0 F 09/03/21 07:32 Pulse 66 09/03/21 07:32 Resp 18 09/03/21 07:32 BP 178/74 09/03/21 07:32 Pulse Ox 97 09/03/21 07:32 09/02/21 09/03/21 09/03/21 22:59 06:59 14:59 Intake Total 960 1987.333 450 / 2438.333 240 / 240 Balance 960 1987.333 450 / 2438.333 240 / 240 Weight last 48 hrs Weight 257 lb Physical Exam Narrative: GENERAL: Patient is alert, awake and oriented x3. [] NECK: No jugular vein distension. [] HEENT: No cyanosis. No icterus. No pallor. [] HEART: Regular S1 and S2. No murmur, rub or gallop. [] LUNGS: Clear to auscultate bilaterally. [] ABDOMEN: Soft, nontender and nondistended. Positive bowel sounds. No guarding, rebound or tenderness. [] CENTRAL NERVOUS SYSTEM: Grossly nonfocal. [] EXTREMITIES: Lower extremities with 1+ edema bilaterally. Pulses palpable in the lower extremities, both dorsalis pedis and posterior tibial. [] Data : 09/03/21 04:10 09/03/21 05:30 A&P Assessment and plan (1) Hyperlipidemia: Status: Chronic (2) Diabetes mellitus, type II: Status: Chronic Qualifiers: Diabetes mellitus watcher automat long goods insulin use: with longterm use Diabetes mellitus complication status: with kidney complications Diabetes mellitus complication detail: with chronic kidney disease Chronic kidney disease stage: stage 3 (moderate) Chronic kidney disease stage 3 subtype: stage 3a (GFR 45-59) Qualified Code(s): E11.22 - Type 2 diabetes mellitus with diabetic chronic kidney disease; N18.31 - Chronic kidney disease, stage 3a; Z79.4 - predatory animal exterminator (current) use of insulin (3) Chest pain: Status: Acute Plan Patient has presented with chest pain symptoms however troponins have not trended up significantly, echo does not show LV dysfunction and stress test showed small sized prior infarct with no significant ischemia. Decision was made to medically manage him after detailed discussion with the patient. He is chest pain-free at this time. Patient has been switched to oral blood pressure medications. Continue aspirin. Thank you for involving us with care of this patient. We will sign off. Please call with questions Attestations Medical Necessity Statement*: Care expected to cross 2 midnights. Coding Level of Care Code Acute Statistical Analyst for [facility] Diagnoses Hyperlipidemia E78.5 Diabetes mellitus, type II E11.22; N18.31; Z79.4 Diabetes mellitus longterm insulin use: with longterm use Diabetes mellitus complication status: with kidney complications Diabetes mellitus complication detail: with chronic kidney disease Chronic kidney disease stage: stage 3 (moderate) Chronic kidney disease stage 3 subtype: stage 3a (GFR 45-59) Chest pain R07.9
[2021-09-03] MEDS: lisinopril 20 mg Tablet PO (10:08)
[2021-09-03] MEDS: aspirin 325 mg EC Tablet PO (10:08)
[2021-09-03] MEDS: cloNIDine 0.1 mg Tablet PO (10:08)
[2021-09-03] MEDS: metoprolol tartrate 25 mg Tablet PO (10:08)
[2021-09-03] MEDS: insulin nph human 100 units/1 mL 30 UNIT SUBCUT (10:09)
[2021-09-03] MEDS: spironolactone 25 mg Tablet PO (10:09)
[2021-09-03 11:40] LABS: Glucose Point of Care 404 mg/dL (70-110)
[2021-09-03] MEDS: FUROsemide 10 mg/mL SDV 4mL 40 MG IVP (12:15)
[2021-09-03] MEDS: amlodipine 10 mg Tablet PO (12:15)
[2021-09-03] MEDS: insulin lispro 100 unit/1 mL SUBCUT (12:15)
--- NOTE | 2021-09-03 14:38 | PM.DCS ---
Discharge Providers Date of Admission: 09/01/21 22:07 Date of Discharge: September 03, 2021 Attending Provider at Admission: Louisa Bishop MD Attending Provider at Discharge: Farshad Castillo MD Diagnoses at Discharge Discharge Diagnosis (1) Chest pain: Status: Acute Qualifiers: Chest pain type: precordial pain Qualified Code(s): R07.2 - Precordial pain (2) Hypertensive urgency: Status: Acute (3) Elevated serum creatinine: Status: Acute (4) Diabetes mellitus, type II: Status: Chronic Qualifiers: Diabetes mellitus senior living insulin use: with senior living use Diabetes mellitus complication status: with kidney complications Diabetes mellitus complication detail: with chronic kidney disease Chronic kidney disease stage: stage 3 (moderate) Chronic kidney disease stage 3 subtype: stage 3a (GFR 45-59) Qualified Code(s): E11.22 - Type 2 diabetes mellitus with diabetic chronic kidney disease; N18.31 - Chronic kidney disease, stage 3a; Z79.4 - retirement (current) use of insulin (5) Hyperlipidemia: Status: Chronic (6) Sleep apnea: Status: Chronic Qualifiers: Sleep apnea type: obstructive Qualified Code(s): G47.33 - Obstructive sleep apnea (adult) (pediatric) Permanent problem details: Has been on CPAP in the past; does not currently have a functioning CPAP machine (7) Body mass index (BMI) of 40.1 to 44.9 in adult: Status: Chronic Reason for Visit Reason for Visit: Possible Heart Attack Hospital Course Hospital Course This is a 61-year-old male with a past medical history of type 2 diabetes mellitus, sleep apnea, hypertension, hyperlipidemia who presents [facility] for chest pain Patient was admitted to [facility] for chest pain, 6-hour troponin 30, no significant delta troponin, EKG showed T wave changes in the lateral leads, cardiac echo Technically limited quality echocardiogram because of poor ?ultrasonic windows.? ?LV systolic function is normal with EF of 60 to 65%. ?Grade 1 diastolic dysfunction. ?Moderate mitral annular calcification is seen.? Aortic valve is ?thickened. ?Trace tricuspid regurgitation. ?No comparison studies are available. Cardiac stress test 1. Abnormal myocardial perfusion imaging with small sized, prior infarct seen ?in the left circumflex artery territory. ?2. LV systolic function is normal Cardiology was consulted, recommended medical management, discharged on aspirin, statin, beta-lorenza, nitro as needed for chest pain follow-up with cardiology as outpatient Patient was advised if he had recurrent chest pain to go to emergency room Patient had hypertensive urgency throughout his hospitalization, blood pressure managed with multiple antihypertensive medications. Discharged on metoprolol, Norvasc, lisinopril, spironolactone, clonidine as needed with parameters. Patient will follow with primary care provider for blood pressure management as outpatient. He was advised if he were to have any strokelike symptoms, chest pain, lightheadedness go to the emergency room Physical Exam Const: COMMON NORMALS: no acute distress and patient oriented x3 Resp: COMMON NORMALS: normal respiratory effort, No retractions, No use of accessory muscles and clear to auscultation bilaterally AUSCULTATION: clear to auscultation bilaterally Cardio: COMMON NORMALS: regular rate, regular rhythm, S1 normal heart sound present and S2 normal heart sound present RATE: regular rate RHYTHM: regular rhythm HEART SOUNDS: S1 normal heart sound present and S2 normal heart sound present GI: COMMON NORMALS: Normal to inspection, nondistended, normoactive bowel sounds present, Soft to palpation, non-tender and No hepatosplenomegaly present PALPATION: Yes Soft to palpation and Yes No hepatosplenomegaly present Extremity: COMMON NORMALS: no pedal edema Neuro: COMMON NORMALS: patient oriented x3 Psych: COMMON NORMALS: mental status grossly normal Discharge Data Studies Completed and Pending Completed Studies During Hospitalization Category Date Time Status Sestamibi Stress Test Request Routine Exams 09/02/21 01:17 Draft XR chest 1V portable [id number] Stat Exams 09/01/21 17:31 Completed NM hakeem perf SPECT r/s* [id number] Routine Nuc Med 09/02/21 01:18 Completed CV. echo wo/w contrast [id number] Routine Ultrasound 09/02/21 01:16 Completed Pending at discharge Category Date Time Status Complete Blood Count w/Auto AM LABS Lab 09/04/21 04:00 Ordered Complete Blood Count w/Auto AM LABS Lab 09/05/21 04:00 Ordered Comprehensive Metabolic Panel AM LABS Lab 09/04/21 04:00 Ordered Comprehensive Metabolic Panel AM LABS Lab 09/05/21 04:00 Ordered Magnesium AM LABS Lab 09/04/21 04:00 Ordered Magnesium AM LABS Lab 09/05/21 04:00 Ordered Phosphorus AM LABS Lab 09/04/21 04:00 Ordered Phosphorus AM LABS Lab 09/05/21 04:00 Ordered Radiology Impressions Chest X-Ray 09/01/21 17:31 IMPRESSION: No acute findings. Laboratory Results WBC 7.7 10^3/uL (4.0-10.0) 09/03/21 04:10 RBC 5.59 10^6/uL (4.1-5.3) H 09/03/21 04:10 Hgb 15.9 g/dL (11.7-16.6) 09/03/21 04:10 Hct 44.9 % (42.0-52.0) 09/03/21 04:10 MCV 80.3 fl (80-94) 09/03/21 04:10 MCH 28.4 pg (28.0-34.0) 09/03/21 04:10 MCHC 35.4 g/dL (30.0-36.0) 09/03/21 04:10 RDW 11.9 % (12.1-15.1) L 09/03/21 04:10 Plt Count 226 10^3/cmm (130-400) 09/03/21 04:10 MPV 11.1 fL (7.4-10.4) H 09/03/21 04:10 Neut % (Auto) 54.2 % 09/03/21 04:10 Lymph % (Auto) 35.5 % 09/03/21 04:10 Hood % (Auto) 6.0 % 09/03/21 04:10 Eos % (Auto) 3.5 % 09/03/21 04:10 Baso % (Auto) 0.5 % 09/03/21 04:10 Neut # (Auto) 4.18 10^3/uL (1.8-7.7) 09/03/21 04:10 Lymph # (Auto) 2.7 10^3/uL (0.8-4.8) 09/03/21 04:10 Hood # (Auto) 0.5 10^3/uL (0.2-0.9) 09/03/21 04:10 Eos # (Auto) 0.3 10^3/uL (0.0-0.8) 09/03/21 04:10 Baso # (Auto) 0.0 10^3/uL (0.0-0.1) 09/03/21 04:10 Nucleated RBC % (auto) 0 % 09/03/21 04:10 Nucleated RBCs # 0.0 /100WBC 09/03/21 04:10 APTT 33.2 SECONDS (23.9-36.7) 09/02/21 05:42 Sodium 138 mmol/L (136-145) 09/03/21 05:30 Potassium 4.1 mmol/L (3.5-5.1) 09/03/21 05:30 Chloride 103 mmol/L (98-107) 09/03/21 05:30 Carbon Dioxide 24 mmol/L (22-29) 09/03/21 05:30 Anion Gap 15.1 (5-19) 09/03/21 05:30 BUN 21 mg/dL (8-23) 09/03/21 05:30 Creatinine 1.1 mg/dL (0.7-1.2) 09/03/21 05:30 GFR Calculation 68.1 mL/min (90-130) L 09/03/21 05:30 Glucose 121 mg/dL (65-115) H 09/03/21 05:30 POC Glucose 404 mg/dL (70-110) H 09/03/21 11:23 Estimat Average Glucose 232 09/02/21 05:42 Hemoglobin A1c 9.7 % (4.0-6.0) H 09/02/21 05:42 Calculated Osmolality 290 mOsm/kg (285-295) 09/03/21 05:30 Calcium 8.4 mg/dL (8.5-10.5) L 09/03/21 05:30 Phosphorus 3.7 mg/dL (2.5-4.5) 09/03/21 05:30 Magnesium 2.0 mg/dL (1.7-2.3) 09/03/21 05:30 Total Bilirubin 0.4 mg/dL (0.15-1.2) 09/03/21 05:30 AST 17 U/L (0-40) 09/03/21 05:30 ALT 19 U/L (0-41) 09/03/21 05:30 Alkaline Phosphatase 81 IU/L (40-130) 09/03/21 05:30 Troponin T Baseline 28 ng/L (0-15) H 09/01/21 17:55 Troponin T 120 Minute 32.51 ng/L (0-15) H 09/01/21 19:50 Delta Troponin T 4.51 ABS# (0-10) 09/01/21 19:50 Troponin T Hi Sens 6Hr 30.40 ng/L (0-15) H 09/01/21 23:25 Troponin T Hi Sens 6Hr Delta 2.40 ng/L (0-12) 09/01/21 23:25 Total Protein 6.4 g/dL (6.6-8.7) L 09/03/21 05:30 Albumin 3.3 g/dL (3.5-5.2) L 09/03/21 05:30 Globulin 3.1 g/dL (1.3-4.6) 09/03/21 05:30 Triglycerides 192 mg/dL (0-150) H 09/02/21 05:42 Cholesterol 172 mg/dL (0-200) 09/02/21 05:42 LDL Cholesterol, Calc 91 mg/dL (50-129) 09/02/21 05:42 HDL Cholesterol 43 mg/dL (60-100) L 09/02/21 05:42 LDL/HDL Ratio 2.12 RATIO (0.00-3.22) 09/02/21 05:42 Cholesterol/HDL Ratio 4.00 mg/dL (1.0-5.00) 09/02/21 05:42 Vitals Last Vital Signs Temp 98.0 F 09/03/21 07:32 Pulse 58 L 09/03/21 13:37 Resp 18 09/03/21 11:15 BP 145/66 09/03/21 13:37 Pulse Ox 96 09/03/21 11:15 Discharge Plan Discharge Patient Disposition: Home Condition: Stable Prescriptions: New metoprolol tartrate 25 mg Tablet 25 mg PO BID@0900,2100 30 Days Qty: 60 0RF spironolactone 25 mg Tablet 25 mg PO DAILY 30 Days Qty: 30 0RF lisinopril 20 mg Tablet 20 mg PO BID 30 Days Qty: 60 0RF aspirin 81 mg capsule 81 mg PO DAILY 30 Days Qty: 30 0RF amlodipine 10 mg Tablet 10 mg PO DAILY 30 Days Qty: 30 0RF nitroglycerin 0.4 mg tablet, sublingual 0.4 mg sublingual Q5M PRN (Reason: chest pain) 30 Days Qty: 30 0RF Rx Instructions: do not exceed 3 doses per episode Continued atorvastatin 10 mg tablet 10 mg PO DAILY 0RF furosemide 20 mg tablet 20 mg PO DAILY 0RF Novolin R Regular U-100 Insuln 100 unit/mL Solution See Rx Instructions .ROUTE .COMPLEX 0RF Rx Instructions: uses with sliding scale as needed ac Novolin N NPH U-100 Insulin 100 unit/mL Suspension 30 unit SUBCUT BID 0RF clonidine HCl 0.1 mg tablet 0.1 mg PO DAILY PRN (Reason: Hypertension) 30 Days Qty: 30 0RF Rx Instructions: for sbp>180 or DBP>100 Discontinued lisinopril 20 mg tablet 10 mg PO DAILY 0RF Discharge Orders: Discharge Order (Routine); Ordered 09/03/21 Ordered By: Farshad Castillo Referrals: Billy Chen M.D [Physician] - 1 month Discharge Diet: Cardiac Discharge Activity: Resume usual activity Patient Instructions: Chest Pain (DC), Chest Pain Stoplight, Opioid Safety Activity Restrictions/Additional Instructions: - Follow-up with primary primary care provider for blood pressure check in 1 week -If you have recurrent chest pain please go to emergency room -Follow-up with cardiology in 1 month Discharge Attestations Time Spent in Discharge Care*: less than 30 min Quality Metrics Clinical Quality Measures [ No reported AMI, CVA or VTE this stay] Coding Level of Care Code Acute Chg FW DC note Diagnoses Chest pain R07.2 Chest pain type: precordial pain Hypertensive urgency I16.0 Elevated serum creatinine R79.89 Diabetes mellitus, type II E11.22; N18.31; Z79.4 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
--- NOTE | 2021-09-03 16:41 | PC.NURSE ---
patient verbalized understanding of discharge instructions, home medications, and follow up appointments.
== END 2021-09-03 16:43 | disposition home or self-care (01) ==
LOC: ER 22:08 → MEDSURG 22:32
PROVIDERS: Emergency Medicine; Admitting Provider Hospitalist; Emergency Provider Emergency Medicine; Visit Provider Family Medicine
DX: R07.2 Precordial pain (principal); I16.0 Hypertensive urgency; R79.89 Other specified abnormal findings of blood chemistry; E11.22 Type 2 diabetes mellitus with diabetic chronic kidney disease; I13.10 Hypertensive heart and chronic kidney disease without heart failure, with stage 1 through stage 4 chronic kidney disease, or unspecified chronic kidney disease; N18.31 Chronic kidney disease, stage 3a; Z79.4 Long term (current) use of insulin; E78.5 Hyperlipidemia, unspecified; G47.33 Obstructive sleep apnea (adult) (pediatric); Z68.41 Body mass index [BMI] 40.0-44.9, adult; Z79.82 Long term (current) use of aspirin; Z82.49 Family history of ischemic heart disease and other diseases of the circulatory system
CPT/HCPCS: 36415; 36416; 71045; 78452; 80048; 80053; 80061; 82962; 83036; 83735; 84100; 84484; 85025; 85730; 93005; 93017; 96365; 96372; 96375; 99285; A9500; C8929; G0378; J1650; J1815; J1940; J2785; J3490; Q9956

== ENCOUNTER → 2024-04-30 09:56 | Outpatient (BNVA) | payer OTHER, SELFPAY | PROVIDERS: Visit Provider Family Medicine | DX: M79.642 Pain in left hand (principal); M25.532 Pain in left wrist; W19.XXXA Unspecified fall, initial encounter; M79.632 Pain in left forearm; M25.432 Effusion, left wrist; M25.522 Pain in left elbow; M25.422 Effusion, left elbow; M25.512 Pain in left shoulder; S49.92XA Unspecified injury of left shoulder and upper arm, initial encounter; R93.6 Abnormal findings on diagnostic imaging of limbs; M25.712 Osteophyte, left shoulder; I70.298 Other atherosclerosis of native arteries of extremities, other extremity | CPT/HCPCS: 73030; 73070; 73090; 73100; 73120 ==